=== PATIENT | male | born 1965 | race Two or more races ===

== ENCOUNTER 2024-10-29 11:13 | Inpatient (IN) | payer OTHER ==
[~2024-10-29] VITALS: Ht 180.3 cm; Wt 161.0 kg
[2024-10-29] MEDS ORDERED: LOPRESSOR25 MG PO (12:18)
[2024-10-29] MEDS ORDERED: HYZAAR 100-251 EACH PO (12:18)
--- NOTE | 2024-10-29 12:18 | NUR ---
PACIENTE REFIERE DOLOR PELVICO Y PROBLEMAS PARA ORINAR. SE MIDEN Y REPORTAN SIGNOS VITALES Y SE UBICA EN PASILLO.
[2024-10-29] MEDS ORDERED: TAMSULOSIN HCL 0.4 MG CAP PO ONE ×2 (12:45→13:08)
--- NOTE | 2024-10-29 13:26 | NUR ---
EVALUADO PTE. POR DR. PAGAN. SE ORIENTA SOBRE TRATAMIENTO Y MEDICAMENTO EL CUAL SE ADM. WES ORDEN MEDICA. MUESTRAS TOMADAS Y SE ENVIAN AL LABORATORIO.SE HACEN ARREGLOS PARA CT SCAN.
[2024-10-29 13:56] LABS: HEMATOCRIT 37.9 % (39.0-48.0); HEMOGLOBIN 12.3 g/dL (13-16.00); MEAN CELL VOLUME 89.2 fL (80.0-100.00); MEAN CORPUSCULAR HEMOGLOBIN 28.8 pg (27.00-32.0); MEAN CORPUSCULAR HGB CONC 32.4 g/dl (32.0-36.0); PLATELET COUNT 360 K/uL (150-450); RED BLOOD COUNT 4.25 M/uL (4.00-6.00)
[2024-10-29 14:16] LABS: CALCIUM 9.3 mg/dL (8.5-10.1); CREATININE SERUM 0.91 mg/dL (0.70-1.30); GFR 84.98; POTASSIUM 3.63 mEq/L (3.5-5.1)
[2024-10-29 14:24] LABS: PH,URINE 6.5 (5.0-8.0); URINE APPEARANCE Cloudy; URINE BILIRRUBIN Negative (NEGATIVE); URINE BLOOD Moderate; URINE COLOR Yellow; URINE GLUCOSE Negative (NEGATIVE); URINE KETONE Negative (NEGATIVE); URINE LEUKOCYTE Moderate; URINE NITRATE Negative; URINE PROTEIN Trace (NEGATIVE)
[2024-10-29 14:28] LABS: URINE BACTERIA 874.9 uL (0.0-1933); URINE EPITHELIAL CELLS 4.1 uL (0.0-38.8); URINE RBC 219.9 uL (0.0-20.8); URINE WBC 602.7 uL (0.0-23.2)
[2024-10-29 14:38] LABS: URINE CAST 0.14 uL (0.0-1.40)
[2024-10-29] MEDS ORDERED: levoFLOXacin IN DEXTROSE 5 % 500MG/100ML PIGGYBAG IV ONE ×2 (15:30→15:41)
[2024-10-29] MEDS ORDERED: CEFTRIAXONE SODIUM 2,000 MG in 0.9 % SODIUM CHLORIDE 100 ML IV SCH (19:54)
[2024-10-29] MEDS ORDERED: METOPROLOL TARTRATE 25 MG TABLET PO SCH (19:56)
[2024-10-29] MEDS ORDERED: LOSARTAN/HYDROCHLOROTHIAZIDE 1 UDTAB TABLET PO SCH (19:56)
[2024-10-29] MEDS ORDERED: 0.9 % SODIUM CHLORIDE 1,000 ML IV SCH (20:00)
[2024-10-29] MEDS ORDERED: ACETAMINOPHEN 325 MG TABLET PO PRN (20:00)
[2024-10-29] MEDS ORDERED: FAMOTIDINE/PF 20 MG in 0.9 % SODIUM CHLORIDE 8 ML IV PUSH SCH (21:00)
[2024-10-29] MEDS ORDERED: CEFTRIAXONE SODIUM 2,000 MG VIAL ONE (21:28)
[2024-10-29] MEDS ORDERED: FAMOTIDINE/PF 20 MG/2 ML VIAL ONE (21:28)
[2024-10-29 23:51] VITALS: BP 160/80; O2SAT 98
[2024-10-30 06:00] VITALS: BP 150/86
[2024-10-30 08:31] VITALS: BP 149/69
[2024-10-30] MEDS ORDERED: ACETAMINOPHEN 500 MG GEL..CAP PO PRN (16:30)
[2024-10-30 17:32] VITALS: BP 189/88; O2SAT 100
[2024-10-30] MEDS ORDERED: LACTOBACILLUS ACIDOPHILUS 1 CAP CAP PO SCH (18:26)
[2024-10-31 03:33] VITALS: BP 164/74
[2024-10-31 09:06] VITALS: BP 158/67
[2024-10-31] MEDS ORDERED: AMLODIPINE BESYLATE 5 MG TABLET PO SCH (18:13)
[2024-10-31] MEDS ORDERED: TAMSULOSIN HCL 0.4 MG CAP PO SCH (18:43)
[2024-10-31 18:46] VITALS: BP 190/82; O2SAT 98
[2024-11-01 03:09] VITALS: BP 164/70
[2024-11-01 07:06] LABS: HEMATOCRIT 37.1 % (39.0-48.0); HEMOGLOBIN 12.1 g/dL (13-16.00); MEAN CELL VOLUME 89.6 fL (80.0-100.00); MEAN CORPUSCULAR HEMOGLOBIN 29.2 pg (27.00-32.0); MEAN CORPUSCULAR HGB CONC 32.5 g/dl (32.0-36.0); PLATELET COUNT 364 K/uL (150-450); RED BLOOD COUNT 4.14 M/uL (4.00-6.00)
[2024-11-01] MEDS ORDERED: CEFTRIAXONE SODIUM 2,000 MG VIAL ONE (08:52)
[2024-11-01] MEDS ORDERED: FAMOTIDINE/PF 20 MG/2 ML VIAL ONE (08:52)
[2024-11-01 08:57] VITALS: BP 148/88; O2SAT 97
[2024-11-01 16:48] VITALS: BP 160/82
== END 2024-11-01 20:23 | disposition home or self-care (01) | DRG 690 ==
LOC: ER 11:16 → MEDJ 20:06 → SEC-K 20:06 → MEDJ 22:50
PROVIDERS: Emergency Medicine; Internal Medicine Infectious Disease; ADMIT Internal Medicine; ATTEND Internal Medicine
PROC: BW21ZZZ Computerized Tomography (CT Scan) of Abdomen and Pelvis (ICD-10-PCS; principal; 2024-10-29)
PROC: BT43ZZZ Ultrasonography of Bilateral Kidneys (ICD-10-PCS; 2024-10-31)
DX: N39.0 Urinary tract infection, site not specified (principal); N20.0 Calculus of kidney; N40.0 Benign prostatic hyperplasia without lower urinary tract symptoms; I10 Essential (primary) hypertension; Z88.6 Allergy status to analgesic agent

== ENCOUNTER 2025-06-17 08:15 | Outpatient (CLI) | payer OTHER ==
[~2025-06-17 08:15] MED LIST: HYZAAR 100-251 EACH PO; LOPRESSOR25 MG PO
[2025-06-17 09:43] LABS: BASO % 0.4 % (0.1-1.2); EOS # 0.20 (0.04-0.54); EOS % 1.6 % (0.7-7.0); LYMPH # 2.09 (1.18-3.74); LYMPH % 16.9 % (19.3-53.1); MEAN PLATELET VOLUME 9.90 fl (9.4-12.4); MONO # 0.98 (0.24-0.82); MONO % 7.9 % (4.7-12.5); NEUT # 9.00 (1.56-6.13); NEUT % 72.7 % (34.0-71.1); RED CELL DISTRIBUTION WIDTH 16.1 % (11.6-14.4)
[2025-06-17 09:46] LABS: URINE APPEARANCE Clear; URINE BILIRRUBIN Negative (NEGATIVE); URINE BLOOD Negative; URINE COLOR Yellow; URINE GLUCOSE Negative (NEGATIVE); URINE KETONE Negative (NEGATIVE); URINE LEUKOCYTE Negative; URINE NITRATE Negative; URINE PROTEIN Negative (NEGATIVE); URINE UROBILINOGEN 1.0 E.U./dl
[2025-06-17 09:48] LABS: URINE BACTERIA 15.5 uL (0.0-1933); URINE EPITHELIAL CELLS 1.5 uL (0.0-38.8); URINE RBC 2.3 uL (0.0-20.8); URINE WBC 8.1 uL (0.0-23.2)
[2025-06-17 10:10] LABS: URINE CAST 0.00 uL (0.0-1.40)
[2025-06-17 10:53] LABS: ALT/SGPT 20.0 U/L (12-78); AST/SGOT 12.0 U/L (15-37); BILIRUBIN TOTAL 0.47 mg/dL (0.3-1.2); BUN CREA RATIO 16.0 (7.0-25.0); CREATININE SERUM 0.93 mg/dL (0.70-1.30); GFR 82.6; GLOBULINA 3.9 G/DL (2.4-3.5); GLUCOSE FASTING 96.0 mg/dL (65-100); OSMOLALITY SERUM 288.0 MOSM/KG (275-295); T3 UPTAKE 31.0 % (33-40); T4 TOTAL 9.57 UG/DL (4.5-12.1); TSH 1.82 uIU/mL (0.358-3.74)
== END 2025-06-17 08:19 | disposition home or self-care (01) ==
LOC: LAB 08:15
PROVIDERS: ATTEND Internal Medicine
DX: E03.9 Hypothyroidism, unspecified (principal); I10 Essential (primary) hypertension; E55.9 Vitamin D deficiency, unspecified; E66.01 Morbid (severe) obesity due to excess calories; N41.0 Acute prostatitis; E46 Unspecified protein-calorie malnutrition; N39.0 Urinary tract infection, site not specified

== ENCOUNTER 2025-09-06 08:50 | Outpatient (CLI) | payer OTHER | END 2025-09-06 08:55 | disposition home or self-care (01) | LOC: SONOGRAMA 08:50 | PROVIDERS: ATTEND Internal Medicine Endocrinology, Diabetes & Metabolism | DX: R74.01 Elevation of levels of liver transaminase levels (principal); E04.1 Nontoxic single thyroid nodule ==